=== PATIENT | male | born 1985 | race Caucasian/White ===

== ENCOUNTER 2021-03-08 06:46 | Emergency (ER) | payer OTHER ==
--- NOTE | 2021-03-08 07:28 | EDM.PDOC ---
ED HPI GENERAL MEDICAL PROBLEM - General Chief Complaint: Chest Pain Stated Complaint: CHEST PAIN Time Seen by Provider: 03/08/21 07:23 - History of Present Illness INITIAL COMMENTS - FREE TEXT/NARRATIVE: 35-year-old male presents the emergency room with chest pain. Patient states this started about 11:00 yesterday morning. The patient has not had problems like this in the past. Activities such as twisting moving his torso tend to make it worse. Walking and standing do not seem to aggravate it. Patient has not had any recent illness he has had the Covid vaccine. Patient does not have any underlying medical problems. He does attribute this to stress. Patient has a desk job. He is also stating at times his left hand goes numb this is been going on for the last couple of weeks. He is not a smoker. He has no family history of premature coronary artery disease there is some help heart problems with advanced age. Patient does not smoke. The patient denies any recent illnesses. Left Chest Pain Score (Numeric/FACES): 2 - Related Data Allergies Allergy/AdvReac Type Severity Reaction Status Date / Time No Known Allergies Allergy Verified 03/08/21 07:08 Home Meds: Home Meds . [No Known Home Meds] 03/08/21 [History] Past Medical History - Past Health History Medical/Surgical History: Denies Medical/Surgical History Social & Family History - Family History Family Medical History: No Pertinent Family History - Tobacco Use Tobacco Use Status *Q: Never Tobacco User Second Hand Smoke Exposure: No - Caffeine Use Caffeine Use: Reports: Coffee - Recreational Drug Use Recreational Drug Use: Yes Drug Use in Last 12 Months: Yes Recreational Drug Type: Reports: Marijuana/Hashish ED ROS GENERAL - Review of Systems Review Of Systems: See Below Constitutional: Reports: No Symptoms HEENT: Reports: No Symptoms Respiratory: Reports: No Symptoms Cardiovascular: Reports: Chest Pain, Blood Pressure Problem. Denies: Dyspnea on Exertion, Palpitations Endocrine: Reports: No Symptoms GI/Abdominal: Reports: No Symptoms : Reports: No Symptoms Musculoskeletal: Reports: No Symptoms Skin: Reports: No Symptoms Neurological: Reports: No Symptoms ED EXAM, GENERAL - Physical Exam Exam: See Below Exam Limited By: No Limitations General Appearance: Alert, No Apparent Distress Head: Atraumatic, Normocephalic Neck: Normal Inspection, Supple, Non-Tender, Full Range of Motion. No: Lymphadenopathy (L), Lymphadenopathy (R) Respiratory/Chest: No Respiratory Distress, Lungs Clear, Normal Breath Sounds Cardiovascular: Regular Rate, Rhythm, No Edema, No Murmur GI/Abdominal: Normal Bowel Sounds, Soft, Non-Tender Back Exam: Normal Inspection. No: CVA Tenderness (L), CVA Tenderness (R) Extremities: No Pedal Edema Neurological: Alert, Oriented, Normal Cognition #1 Interpretation EKG Date: 03/08/21 Rhythm: NSR Rate (Beats/Min): 81 Lindsay: Normal P-Wave: Present QRS: Normal (Borderline RSR in V1 more prominent in V2 I do not believe this is pathologic) ST-T: Normal QT: Normal Comparison: NA - No Prior EKG EKG Interpretation Comments: Patient has some [place] downsloping in leads I, II, I, III aVF V4 5 and 6. Otherwise normal EKG Course - Vital Signs Last Recorded V/S: Last Vital Signs Temp 36.2 C 03/08/21 07:02 Pulse 81 03/08/21 11:56 Resp 18 03/08/21 11:56 BP 121/74 03/08/21 11:56 Pulse Ox 99 03/08/21 11:56 - Orders/Labs/Meds Labs: Laboratory Tests 03/08/21 03/08/21 03/08/21 Range/Units 07:47 07:47 07:47 WBC (4.23-9.07) K/mm3 RBC (4.63-6.08) M/mm3 Hgb (13.7-17.5) gm/dl Hct (40.1-51.0) % MCV (79.0-92.2) fl MCH (25.7-32.2) pg MCHC (32.2-35.5) g/dl RDW Std Deviation (35.1-43.9) fL Plt Count (163-337) K/mm3 MPV (9.4-12.3) fl Neutrophils % (Manual) (40-60) % Band Neutrophils % (0-10) % Lymphocytes % (Manual) (20-40) % Atypical Lymphs % % Monocytes % (Manual) (2-10) % Eosinophils % (Manual) (0.8-7.0) % Basophils % (Manual) (0.2-1.2) Platelet Estimate RBC Morph Comment ESR 5 (0-15) mm/hr PT (9.7-12.0) SECONDS INR APTT (21.7-31.4) SECONDS D-Dimer, Quantitative 0.56 H (0.19-0.50) mg/L Sodium 140 (136-145) mEq/L Potassium 4.1 (3.5-5.1) mEq/L Chloride 104 (98-107) mEq/L Carbon Dioxide 28 (21-32) mEq/L Anion Gap 12.1 (5-15) BUN 18 (7-18) mg/dL Creatinine 1.2 (0.7-1.3) mg/dL Est Cr Clr Drug Dosing 88.03 mL/min Estimated GFR (MDRD) > 60 (>60) mL/min BUN/Creatinine Ratio 15.0 (14-18) Glucose 90 (70-99) mg/dL Calcium 8.8 (8.5-10.1) mg/dL Total Bilirubin 0.6 (0.2-1.0) mg/dL AST 10 L (15-37) U/L ALT 14 L (16-63) U/L Alkaline Phosphatase 49 (46-116) U/L Troponin I < 0.017 (0.00-0.056) ng/mL C-Reactive Protein <0.2 (<1.0) mg/dL Total Protein 7.6 (6.4-8.2) g/dl Albumin 4.2 (3.4-5.0) g/dl Globulin 3.4 gm/dL Albumin/Globulin Ratio 1.2 (1-2) 03/08/21 03/08/21 Range/Units 07:47 07:47 WBC 6.42 (4.23-9.07) K/mm3 RBC 4.62 L (4.63-6.08) M/mm3 Hgb 14.2 (13.7-17.5) gm/dl Hct 42.3 (40.1-51.0) % MCV 91.6 (79.0-92.2) fl MCH 30.7 (25.7-32.2) pg MCHC 33.6 (32.2-35.5) g/dl RDW Std Deviation 40.7 (35.1-43.9) fL Plt Count 250 (163-337) K/mm3 MPV 11.8 (9.4-12.3) fl Neutrophils % (Manual) 67 H (40-60) % Band Neutrophils % 0 (0-10) % Lymphocytes % (Manual) 23 (20-40) % Atypical Lymphs % 0 % Monocytes % (Manual) 4 (2-10) % Eosinophils % (Manual) 6 (0.8-7.0) % Basophils % (Manual) 0 L (0.2-1.2) Platelet Estimate Adequate RBC Morph Comment Normal ESR (0-15) mm/hr PT 10.6 (9.7-12.0) SECONDS INR 0.95 APTT 27.5 (21.7-31.4) SECONDS D-Dimer, Quantitative (0.19-0.50) mg/L Sodium (136-145) mEq/L Potassium (3.5-5.1) mEq/L Chloride (98-107) mEq/L Carbon Dioxide (21-32) mEq/L Anion Gap (5-15) BUN (7-18) mg/dL Creatinine (0.7-1.3) mg/dL Est Cr Clr Drug Dosing mL/min Estimated GFR (MDRD) (>60) mL/min BUN/Creatinine Ratio (14-18) Glucose (70-99) mg/dL Calcium (8.5-10.1) mg/dL Total Bilirubin (0.2-1.0) mg/dL AST (15-37) U/L ALT (16-63) U/L Alkaline Phosphatase (46-116) U/L Troponin I (0.00-0.056) ng/mL C-Reactive Protein (<1.0) mg/dL Total Protein (6.4-8.2) g/dl Albumin (3.4-5.0) g/dl Globulin gm/dL Albumin/Globulin Ratio (1-2) Meds: Medications Discontinued Medications Generic Name Dose Route Start Last Admin Trade Name Freq PRN Reason Stop Dose Admin Sodium Chloride 100 mls @ 75 mls/hr 03/08/21 09:45 03/08/21 09:59 Normal Saline IV 75 mls/hr ASDIRECTED CHANTAL Administration Iopamidol 100 ml 03/08/21 09:32 03/08/21 09:59 Iopamidol 755 Mg/Ml 100 Ml Bottle IVPUSH 03/08/21 09:33 100 ml ONETIME ONE Administration Ondansetron HCl 4 mg 03/08/21 09:28 03/08/21 11:41 Ondansetron 4 Mg/2 Ml Sdv IVPUSH 03/08/21 09:29 Not Given ONETIME ONE Sodium Chloride 10 ml 03/08/21 09:32 03/08/21 09:59 Sodium Chloride 0.9% 10 Ml Syringe FLUSH 10 ml ONETIME PRN Administration IV FLUSH - Re-Assessments/Exams Free Text/Narrative Re-Assessment/Exam: 03/08/21 09:23 Chest x ray is nornal up and D-dimer is minimally elevated small nodule in right lung base thought to be benign and a non-smoker obtained to CTA that was chest x-ray is normal D-dimer slightly elevated. CTA was done no evidence of PE small nodule in the right lung base thought to be benign in the presence of a non- smoker. Discussed the findings with the patient they are assured. Departure - Departure Time of Disposition: 12:30 Disposition: Home, Self-Care 01 Clinical Impression: Chest wall pain, Anxiety - Discharge Information Instructions: Nonspecific Chest Pain, Adult, [id number] Referrals: PCP,Not In Area [Primary Care Provider] - Forms: ED Department Discharge Additional Instructions: Follow-up with your new regular physician when you get established. In route if you have any medical emergencies seek the closest emergency room. Sepsis Event Note (ED) - Evaluation Sepsis Screening Result: No Definite Risk
[2021-03-08] MEDS ORDERED: Ondansetron 4 MG/2 ML SDV IVPUSH ONE (09:28)
[2021-03-08] MEDS ORDERED: Sodium Chloride 0.9% 10 ML Syringe FLUSH PRN (09:32)
[2021-03-08] MEDS ORDERED: Iopamidol 755 Mg/ML 100 ML Bottle IVPUSH ONE (09:32)
--- NOTE | 2021-03-08 09:43 | CR ---
Chest: Portable view of the chest was obtained. Comparison: No prior chest imaging is available. Heart size and mediastinum are within normal limits. Lungs are clear with no acute parenchymal change. Bony structures show nothing acute. Impression: 1. Nothing acute is seen on portable chest x-ray. Diagnostic code #1
[2021-03-08] MEDS ORDERED: Sodium Chloride 0.9% 100 ML IV SCH (09:45)
--- NOTE | 2021-03-08 10:20 | CT ---
CT chest Technique: Multiple axial sections were obtained through the chest. Intravenous contrast was utilized. Study has been performed as a pulmonary angiogram protocol. Findings: Pulmonary arteries are well opacified. No filling defects are seen to indicate pulmonary embolism. Thoracic aorta shows no aneurysm. Small amount of normal thymic tissue is seen. There is no adenopathy being seen. No pericardial thickening is seen. Visualized portions of the upper abdomen show no discrete abnormality. Lung window settings were reviewed. Small subpleural nodule is seen within the right lung base measuring 3.5 - 4 mm. Lungs otherwise are clear. Bone window settings were reviewed which show no acute osseous abnormality. Impression: 1. No findings of pulmonary embolism. 2. Small nodule within the right lung base. If patient is not a smoker, this can be ignored. If patient is a smoker, recommend repeat noncontrast chest CT study in one year. 3. No acute abnormality is otherwise seen on CT study of the chest. Diagnostic code #3
== END 2021-03-08 12:32 | disposition home or self-care (01) ==
LOC: JD.ED 06:46
DX: F41.9 Anxiety disorder, unspecified (principal); R07.89 Other chest pain
CPT/HCPCS: 36415; 71045; 71045-26; 71275; 71275-26; 80053; 84484; 85007; 85027; 85379; 85610; 85652; 85730; 86140; 93005; 93010; 99285; 99285-25; Q9967